=== PATIENT | male | born 1990 | race Caucasian/White ===

== ENCOUNTER 2024-03-20 01:14 | Emergency (ER) | payer BC ==
[2024-03-20] MEDS: KETOROLAC TROMETHAMINE 30 MG/1 ML VIAL IVPUSH ONE (01:30)
[2024-03-20] MEDS: SODIUM CHLORIDE 0.9% 500 ML INFUS.BAG IV ONE (01:30)
[2024-03-20 01:38] VITALS: BP 120/78; PULSE 66; RESP 18; TEMP 98.7; BMI 21.7
[2024-03-20 02:03] LABS: HEMATOCRIT 42.5 % (35.4-49); HEMOGLOBIN 14.9 GM/dL (11.7-16.9); MCH 32.3 pg (25.7-33.7); MEAN CELL VOLUME 92.2 fl (80-96); PLATELET COUNT 338 10^3/uL (134-434); RBC 4.61 M/mm3 (4.00-5.60); RDW 12.6 % (11.9-15.9); WHITE BLOOD COUNT 7.1 K/mm3 (4.0-10.0)
[2024-03-20 02:17] LABS: POTASSIUM 3.9 mmol/L (3.5-5.1)
[2024-03-20 02:19] LABS: ALBUMIN 3.9 g/dl (3.4-5.0); CALCIUM 9.3 mg/dL (8.5-10.1)
[2024-03-20 02:20] LABS: BLOOD UREA NITROGEN 17.4 mg/dL (7-18)
[2024-03-20 02:21] LABS: EPI CELLS 2 /uL (0-25.1); HYALINE CASTS 0 /uL (0-3.1); URINE APPEARANCE CLEAR; URINE BACTERIA 4 /uL (0-1359); URINE BILIRUBIN NEGATIVE (NEGATIVE); URINE COLOR YELLOW; URINE GLUCOSE (UA) NEGATIVE (NEGATIVE); URINE KETONE NEGATIVE (NEGATIVE); URINE LEUK ESTERASE NEGATIVE (NEGATIVE); URINE NITRITE NEGATIVE (NEGATIVE); URINE PROTEIN NEGATIVE (NEGATIVE); URINE RBC 387 /uL (0-23.9); URINE WBC 6 /uL (0-25.8)
[2024-03-20 02:23] LABS: CREATININE 0.9 mg/dL (0.55-1.3)
[2024-03-20 02:24] LABS: TOT PROT 7.1 g/dl (6.4-8.2)
[2024-03-20 02:25] LABS: BILIRUBIN,TOTAL 0.4 mg/dL (0.2-1)
[2024-03-20 09:01] LABS: ANISOCYTOSIS 0; MACROCYTOSIS 0
== END 2024-03-20 05:28 | disposition home or self-care (01) ==
LOC: FER 01:14
PROC: 3E0333Z Introduction of Anti-inflammatory into Peripheral Vein, Percutaneous Approach (ICD-10-PCS; principal; 2024-03-20)
DX: R10.9 Unspecified abdominal pain (principal); R11.0 Nausea
CPT/HCPCS: 36415; 74176-TC; 80053; 81003; 85025; 85027; 99284-25